=== PATIENT | female | born 1960 | race Hispanic/Latino ===

== ENCOUNTER 2021-07-17 15:36 | Emergency (ER) | payer OTHER ==
[~2021-07-17] VITALS: Ht 154.9 cm; Wt 69.6 kg
[2021-07-17] MEDS ORDERED: OMEPRAZOLE20 M1 (16:27)
[2021-07-17] MEDS ORDERED: ESTRADIOL1 MG PO (16:27)
[2021-07-17] MEDS ORDERED: ACETAMINOPHEN 325 MG TAB PO ONE (17:00)
[2021-07-17] MEDS ORDERED: CLONIDINE HCL 0.1 MG TAB PO ONE (17:15)
[2021-07-17] MEDS ORDERED: ACETAMINOPHEN 325 MG TAB ONE (17:20)
[2021-07-17] MEDS ORDERED: CLONIDINE HCL 0.1 MG TAB ONE (17:20)
[2021-07-17] MEDS ORDERED: SODIUM CHLORIDE 0.9% 500ML 500 ML ONE ×2 (18:39→19:48)
[2021-07-17] MEDS ORDERED: SODIUM CHLORIDE 0.9% 500ML 500 ML IV ONE (19:30)
== END 2021-07-17 20:36 | disposition home or self-care (01) ==
LOC: FSED 15:52
DX: R51.9 Headache, unspecified (principal); R03.0 Elevated blood-pressure reading, without diagnosis of hypertension; D75.1 Secondary polycythemia; K21.9 Gastro-esophageal reflux disease without esophagitis; Z87.19 Personal history of other diseases of the digestive system
CPT/HCPCS: 70450; 80053; 81003; 85025; 99284; J7040